=== PATIENT | male | born 1955 | race Caucasian/White ===

== ENCOUNTER 2018-10-11 22:00 | Inpatient (IN) ==
[2018-10-11] MEDS ORDERED: methylPREDNISolone SOD SUC 125 MG/2 ML VIAL IV STA (22:10)
[2018-10-11] MEDS ORDERED: ALBUTEROL/IPRATROPIUM 3 ML NEB RESP TX STA ×2 (22:10→22:21)
[2018-10-11] MEDS ORDERED: SODIUM CHLORIDE 0.9% 1,000 ML IV STA (22:10)
[2018-10-11 22:34] LABS: Basophils # 0.2 10*3/uL (0.0-0.2); Eosinophils # 0.4 10*3/uL (0.0-0.87); Eosinophils % 1.6 % (0.00-10.9); Hematocrit 57.2 VOL% (42.0-52.0); Immature Granulocytes Absolute 0.22 #; Lymphocytes # 8.7 10*3/uL (1.4-4.0); Lymphocytes % 38.5 % (21.2-54.2); Mean Corpuscular HGB Conc 31.5 GM/DL (32-36); Mean Corpuscular Volume 89.7 FL (87-102); Mean Platelet Volume 12.5 FL (9.6-12.0); Monocytes % 7.1 % (1.7-12.7); Neutrophils % 50.8 % (38.7-73.9); Platelet Count 149 T/CUMM (130-400); Red Blood Count 6.38 MC/CUMM (3.8-5.5); Red Cell Distribution Width 14.4 % (9.3-17.3); White Blood Count 22.6 T/CUMM (4-12)
[2018-10-11] MEDS ORDERED: FUROSEMIDE 100 MG/10 ML VIAL IV STA (22:36)
[2018-10-11 22:43] LABS: ABG Base Excess -4.1 MMOL/L (-2.5-2.5); ABG HCO3 26.9 MMOL/L (20-26); ABG Oxygen Saturation 73.4 % (95-100); ABG PO2 49.9 MM HG (80-95); ABG TCO2 29.2 MMOL/L (23-27); Allen Test Positive
[2018-10-11 22:46] LABS: ABG PCO2 73.1 MM HG (35-48); ABG PH 7.184 (7.35-7.45)
[2018-10-11 22:58] LABS: INR 0.9
[2018-10-11 23:16] LABS: Platelet Estimate Normal
[2018-10-11] MEDS ORDERED: LEVOFLOXACIN INJ 500 MG in PREMIX 1 EACH IV STA (23:28)
[2018-10-12 00:05] LABS: Albumin 3.4 G/DL (3.4-5.0); Bilirubin,Total 0.6 MG/DL (0.2-1.0); Calcium 8.8 MG/DL (8.5-10.1); Total Protein 7.7 G/DL (6.4-8.3)
[2018-10-12 00:06] LABS: Osmolality,Calculated 279.1 MOS/KG (273-304)
[2018-10-12 00:33] LABS: ABG Base Excess -1.8 MMOL/L (-2.5-2.5); ABG HCO3 22.6 MMOL/L (20-26); ABG PCO2 43.6 MM HG (35-48); ABG PO2 54.4 MM HG (80-95); ABG TCO2 20.1 MMOL/L (23-27); Allen Test Positive; Pt O2 Delivery Device BIPAP
[2018-10-12] MEDS ORDERED: ONDANSETRON 4 MG/2 ML VIAL IV PRN (01:44)
[2018-10-12] MEDS ORDERED: guaiFENesin/DM ER 600-30 MG TABLET PO PRN (01:44)
[2018-10-12] MEDS ORDERED: BISACODYL 5 MG TABLET PO PRN (01:44)
[2018-10-12] MEDS ORDERED: ACETAMINOPHEN 325 MG TABLET PO PRN (01:44)
[2018-10-12] MEDS ORDERED: MORPHINE 4 MG/1 ML VIAL IV PRN (01:44)
[2018-10-12] MEDS ORDERED: PROMETHAZINE 25 MG/1 ML VIAL IM PRN (01:44)
[2018-10-12] MEDS ORDERED: POTASSIUM CHLORIDE RIDER 10 MEQ in PREMIX 1 EACH IV PRN (01:44)
[2018-10-12] MEDS ORDERED: NICOTINE 21 MG/24 HR PATCH TRANSDERM PRN (01:44)
[2018-10-12] MEDS ORDERED: diphenhydrAMINE CAP 25 MG CAPSULE PO PRN (01:44)
[2018-10-12] MEDS ORDERED: ENOXAPARIN 100 MG/ML SYRINGE SUBCUT ONE (02:15)
[2018-10-12] MEDS: SODIUM CHLOR 0.9% KCL 20 MEQ 20 MEQ/1,000 ML BAG IV SCH ×3 (02:24→18:37)
[2018-10-12 03:03] LABS: Risk Ratio 6.53; VLDL CHOLESTEROL 44.2 MG/DL
[2018-10-12] MEDS ORDERED: hydrALAZINE 20 MG/1 ML VIAL IV PRN (03:33)
[2018-10-12] MEDS ORDERED: NITROGLYCERIN 2% OINT 1 INCH/GM PACK TOP PRN (03:33)
[2018-10-12 03:58] LABS: ABG Base Excess -1.1 MMOL/L (-2.5-2.5); ABG HCO3 23.4 MMOL/L (20-26); ABG Oxygen Saturation 93.4 % (95-100); ABG PCO2 42.3 MM HG (35-48); ABG PH 7.369 (7.35-7.45); ABG PO2 70.1 MM HG (80-95); ABG TCO2 20.3 MMOL/L (23-27); Allen Test Positive; Pt O2 Delivery Device BIPAP
[2018-10-12] MEDS: PIPERACILLIN/TAZOBACTAM 3,375 MG in SODIUM CHLORIDE 0.9% 100 ML IV SCH ×3 (03:59→18:00)
[2018-10-12] MEDS ORDERED: methylPREDNISolone SOD SUC 40 MG/1 ML VIAL IV SCH ×2 (06:00→09:30)
[2018-10-12 06:14] LABS: Basophils # 0.1 10*3/uL (0.0-0.2); Basophils % 0.2 % (0.0-0.8); Eosinophils % 0.1 % (0.00-10.9); Hematocrit 49.5 VOL% (42.0-52.0); Immature Granulocytes % 0.5 %; Immature Granulocytes Absolute 0.11 #; Lymphocytes # 0.6 10*3/uL (1.4-4.0); Lymphocytes % 3.1 % (21.2-54.2); Mean Corpuscular HGB Conc 32.3 GM/DL (32-36); Mean Corpuscular Volume 88.1 FL (87-102); Mean Platelet Volume 10.7 FL (9.6-12.0); Monocytes % 1.6 % (1.7-12.7); Neutrophils % 94.5 % (38.7-73.9); Platelet Count 197 T/CUMM (130-400); Red Blood Count 5.62 MC/CUMM (3.8-5.5); Red Cell Distribution Width 13.6 % (9.3-17.3); White Blood Count 20.6 T/CUMM (4-12)
[2018-10-12 06:46] LABS: Band Neutrophils 2 % (0-10); Hypochromasia 1+; Lymphocytes 2 % (20-55); Platelet Estimate Adequate; Segmented Neutrophils 94 % (50-85); Total Cells Counted 100
[2018-10-12 06:48] LABS: Albumin 3.3 G/DL (3.4-5.0); Bilirubin,Total 0.7 MG/DL (0.2-1.0); Calcium 8.8 MG/DL (8.5-10.1); Total Protein 7.1 G/DL (6.4-8.3)
[2018-10-12] MEDS: ALBUTEROL/IPRATROPIUM 3 ML NEB RESP TX SCH ×3 (07:25→19:40)
[2018-10-12] MEDS ORDERED: ENOXAPARIN 30 MG/0.3 ML SYRINGE IV ONE (07:59)
[2018-10-12] MEDS ORDERED: VANCOMYCIN INJ 1,500 MG in SODIUM CHLORIDE 0.9% 500 ML IV SCH (08:00)
[2018-10-12] MEDS ORDERED: FUROSEMIDE 40 MG/4 ML VIAL IV SCH (08:00)
[2018-10-12] MEDS ORDERED: LORazepam 2 MG/1 ML VIAL IV ONE (08:09)
[2018-10-12] MEDS ORDERED: FUROSEMIDE 100 MG/10 ML VIAL ONE (08:55)
[2018-10-12] MEDS: NIFEdipine 10 MG CAPSULE PO PRN ×2 (09:10→16:30)
[2018-10-12] MEDS: POTASSIUM CHLORIDE 20 MEQ TABLET PO SCH ×3 (09:23→18:36)
[2018-10-12] MEDS: CARVEDILOL 12.5 MG TABLET PO SCH ×2 (09:31→21:06)
[2018-10-12] MEDS: FUROSEMIDE 40 MG/4 ML VIAL IV SCH (16:39)
[2018-10-12] MEDS: methylPREDNISolone SOD SUC 40 MG/1 ML VIAL IV SCH (18:38)
[2018-10-13] MEDS: ALBUTEROL/IPRATROPIUM 3 ML NEB RESP TX SCH ×4 (01:33→18:49)
[2018-10-13] MEDS: PIPERACILLIN/TAZOBACTAM 3,375 MG in SODIUM CHLORIDE 0.9% 100 ML IV SCH ×3 (03:15→18:19)
[2018-10-13 05:07] LABS: Basophils % 0.1 % (0.0-0.8); Hematocrit 42.9 VOL% (42.0-52.0); Hemoglobin 13.9 GM/DL (14.0-18.0); Immature Granulocytes % 0.8 %; Lymphocytes # 2.5 10*3/uL (1.4-4.0); Mean Corpuscular HGB Conc 32.4 GM/DL (32-36); Mean Corpuscular Volume 88.5 FL (87-102); Mean Platelet Volume 11.6 FL (9.6-12.0); Monocytes % 5.1 % (1.7-12.7); Platelet Count 192 T/CUMM (130-400); Red Blood Count 4.85 MC/CUMM (3.8-5.5); Red Cell Distribution Width 13.9 % (9.3-17.3); White Blood Count 24.8 T/CUMM (4-12)
[2018-10-13 05:46] LABS: Calcium 8.3 MG/DL (8.5-10.1); Osmolality,Calculated 284.5 MOS/KG (273-304)
[2018-10-13 05:51] LABS: Band Neutrophils 3 % (0-10); Lymphocytes 13 % (20-55); Segmented Neutrophils 82 % (50-85); Total Cells Counted 100
[2018-10-13 05:52] LABS: Platelet Estimate Normal
[2018-10-13] MEDS: methylPREDNISolone SOD SUC 40 MG/1 ML VIAL IV SCH (06:06)
[2018-10-13 06:42] LABS: Troponin I 0.395 NG/ML (0.00-0.045)
[2018-10-13] MEDS ORDERED: CARVEDILOL 6.25 MG TABLET PO SCH (08:03)
[2018-10-13] MEDS ORDERED: GLUCAGON 1 MG VIAL IM PRN (08:04)
[2018-10-13] MEDS ORDERED: DEXTROSE 50% 25 GM/50 ML VIAL IV PRN (08:04)
[2018-10-13] MEDS ORDERED: VANCOMYCIN INJ 1,500 MG in SODIUM CHLORIDE 0.9% 500 ML IV SCH (09:00)
[2018-10-13] MEDS: FUROSEMIDE 40 MG/4 ML VIAL IV SCH ×2 (10:04→16:36)
[2018-10-13] MEDS: ENOXAPARIN 40 MG/0.4 ML SYRINGE SUBCUT SCH (10:05)
[2018-10-13] MEDS: NIFEdipine 10 MG CAPSULE PO PRN (10:05)
[2018-10-13] MEDS: INSULIN LISPRO 100 UNIT/ML SUBCUT SCH ×3 (13:36→20:17)
[2018-10-13] MEDS: LOSARTAN 25 MG TABLET PO SCH (15:47)
[2018-10-13] MEDS: CARVEDILOL 12.5 MG TABLET PO SCH (16:36)
[2018-10-13] MEDS ORDERED: ATORVASTATIN 80 MG TABLET PO SCH (21:00)
[2018-10-14] MEDS: ALBUTEROL/IPRATROPIUM 3 ML NEB RESP TX SCH ×2 (00:46→07:25)
[2018-10-14] MEDS: PIPERACILLIN/TAZOBACTAM 3,375 MG in SODIUM CHLORIDE 0.9% 100 ML IV SCH ×2 (02:31→11:31)
[2018-10-14 05:43] LABS: Basophils # 0.1 10*3/uL (0.0-0.2); Basophils % 0.3 % (0.0-0.8); Eosinophils # 0.1 10*3/uL (0.0-0.87); Eosinophils % 0.3 % (0.00-10.9); Hematocrit 44.4 VOL% (42.0-52.0); Immature Granulocytes % 0.8 %; Immature Granulocytes Absolute 0.15 #; Lymphocytes % 26.8 % (21.2-54.2); Mean Corpuscular HGB Conc 31.5 GM/DL (32-36); Mean Corpuscular Volume 88.8 FL (87-102); Mean Platelet Volume 11.1 FL (9.6-12.0); Monocytes % 7.7 % (1.7-12.7); Neutrophils % 64.1 % (38.7-73.9); Platelet Count 198 T/CUMM (130-400); White Blood Count 18.7 T/CUMM (4-12)
[2018-10-14 06:00] LABS: Calcium 8.5 MG/DL (8.5-10.1); Osmolality,Calculated 282.5 MOS/KG (273-304)
[2018-10-14 06:26] LABS: Bilirubin,Direct 0.19 MG/DL (0.0-0.20); Bilirubin,Indirect 0.5 MG/DL (0.0-1.0); Bilirubin,Total 0.7 MG/DL (0.2-1.0); Total Protein 6.3 G/DL (6.4-8.3)
[2018-10-14 08:14] VITALS: BP 172/62
[2018-10-14] MEDS: INSULIN LISPRO 100 UNIT/ML SUBCUT SCH (08:43)
[2018-10-14] MEDS: LOSARTAN 25 MG TABLET PO SCH (08:46)
[2018-10-14] MEDS: ENOXAPARIN 40 MG/0.4 ML SYRINGE SUBCUT SCH (08:47)
[2018-10-14] MEDS: CARVEDILOL 12.5 MG TABLET PO SCH (08:47)
[2018-10-14] MEDS: FUROSEMIDE 40 MG/4 ML VIAL IV SCH (08:49)
[2018-10-14] MEDS ORDERED: NICOTINE 14 MG/24 HR PATCH TRANSDERM SCH (09:00)
== END 2018-10-14 12:07 | disposition home or self-care (01) | DRG 291 ==
LOC: N.ED 22:00 → N.EDINP 10-12 01:44 → SUATTDRO 10-12 01:44 → N.ICU 10-12 02:10 → N.TELES 10-13 14:06
PROVIDERS: ADMIT Internal Medicine; ATTEND Internal Medicine